=== PATIENT | male | born 1985 | race Hispanic/Latino ===

== ENCOUNTER 2021-05-08 11:54 | Day surgery (SDC) | payer MEDICARE, MEDICAID ==
[2021-05-07 09:50] VITALS: BMI 24.2
[2021-05-08 13:06] LABS: SARS-CoV-2 NAA Rapid Test Not Detected (NotDetected)
[2021-05-08] MEDS ORDERED: PROPOFOL 200 MG/20 ML VIAL ONE (14:41)
[2021-05-08] MEDS ORDERED: Lidocaine 1% PF 5 ML VIAL ONE (14:41)
== END 2021-05-08 16:10 | disposition home or self-care (01) ==
LOC: SDC 11:54
PROVIDERS: ATTEND Internal Medicine Gastroenterology
PROC: 0DB78ZX Excision of Stomach, Pylorus, Via Natural or Artificial Opening Endoscopic, Diagnostic (ICD-10-PCS; principal; 2021-05-08)
PROC: 0DH63UZ Insertion of Feeding Device into Stomach, Percutaneous Approach (ICD-10-PCS; 2021-05-08)
DX: E46 Unspecified protein-calorie malnutrition (principal); K29.50 Unspecified chronic gastritis without bleeding; Z68.24 Body mass index [BMI] 24.0-24.9, adult; Z87.820 Personal history of traumatic brain injury; Z93.1 Gastrostomy status; Z20.822 Contact with and (suspected) exposure to COVID-19
CPT/HCPCS: 43239; 43246; U0002; 88305; 88312; J2704

== ENCOUNTER 2023-07-24 11:07 | Day surgery (SDC) | payer OTHER, MEDICAID ==
[2023-07-23 10:00] VITALS: BMI 19.3
[2023-07-24] MEDS ORDERED: Lidocaine 1% PF 5 ML VIAL ONE (13:54)
[2023-07-24] MEDS ORDERED: PROPOFOL 0 ML ONE (13:54)
[2023-07-24] MEDS ORDERED: Midazolam HCl 2 mg/2 ml Vial ONE (14:25)
[2023-07-24] MEDS ORDERED: Ketamine In 0.9 % NaCl 50 MG/5 ML SYRINGE ONE (14:25)
== END 2023-07-24 16:15 | disposition home or self-care (01) ==
LOC: SDC 11:07
PROVIDERS: ATTEND Internal Medicine Gastroenterology
PROC: 0DR Gastrointestinal System, Replacement (ICD-10-PCS; principal; 2023-07-24)
DX: Z43.1 Encounter for attention to gastrostomy (principal); E46 Unspecified protein-calorie malnutrition; K44.9 Diaphragmatic hernia without obstruction or gangrene; Z79.899 Other long term (current) drug therapy
CPT/HCPCS: J2250; J2704; J3490

== ENCOUNTER 2024-08-05 09:59 | Outpatient (CLI) | payer OTHER, MEDICAID ==
[2024-08-05] MEDS ORDERED: Barium Sulfate 96% 176 GM BOT (xray ONLY) ONE (10:05)
== END 2024-08-05 10:00 | disposition home or self-care (01) ==
LOC: RAD 09:59
PROVIDERS: ATTEND Internal Medicine Gastroenterology
DX: R05.3 Chronic cough (principal); K59.00 Constipation, unspecified; R79.89 Other specified abnormal findings of blood chemistry; J98.4 Other disorders of lung; Z93.1 Gastrostomy status
CPT/HCPCS: 71045; 74246

== ENCOUNTER 2025-05-26 10:25 | Outpatient (CLI) | payer OTHER, MEDICAID ==
[2025-05-26] MEDS ORDERED: MD-Gastroview 120 ML BOT ONE (10:56)
== END 2025-05-26 10:26 | disposition home or self-care (01) ==
LOC: RAD 10:25
PROVIDERS: ATTEND Internal Medicine Gastroenterology
DX: R05.3 Chronic cough (principal); K59.00 Constipation, unspecified; K30 Functional dyspepsia; R40.3 Persistent vegetative state; S06.6X9A Traumatic subarachnoid hemorrhage with loss of consciousness of unspecified duration, initial encounter; Z93.1 Gastrostomy status; R93.5 Abnormal findings on diagnostic imaging of other abdominal regions, including retroperitoneum
CPT/HCPCS: 74246; Q9963